=== PATIENT | female | born 2005 | race Caucasian/White ===

== ENCOUNTER 2023-02-18 10:02 | Outpatient (CLI) | payer BC, SELFPAY | END 2023-02-18 10:03 | disposition home or self-care (01) | PROVIDERS: Visit Provider Physician Assistant | DX: N92.0 Excessive and frequent menstruation with regular cycle (principal); N93.8 Other specified abnormal uterine and vaginal bleeding | CPT/HCPCS: 84443; 85240; 85245; 85246; 85384; 85610; 85730 ==

== ENCOUNTER 2023-02-23 13:41 | Outpatient (CLI) | payer BC, SELFPAY ==
--- NOTE | 2023-02-23 14:00 | CRLHL7_ITS ---
For Patients: As a result of the Century Cures Act, medical imaging exams and procedure reports are released immediately into your electronic medical record. You may view this report before your referring provider. If you have questions, please contact your health care provider. INDICATION: Dysfunctional uterine bleeding, frequent menses. TECHNIQUE: Transabdominal and transvaginal pelvic ultrasound. FINDINGS: Uterus is anteverted and measures 7.9 x 2.7 x 4.2 cm. Normal endometrial stripe thickness of 2 mm. Both ovaries appear normal and have normal color flow. No adnexal mass. Minimal physiologic free fluid. IMPRESSION: Normal pelvic ultrasound. Dictated by Riley Trimble MD @ 02/24/2023 8:07:08 AM (Electronically Signed)
== END 2023-02-23 13:42 | disposition home or self-care (01) ==
LOC: US 13:42
PROVIDERS: Visit Provider Physician Assistant
DX: N93.9 Abnormal uterine and vaginal bleeding, unspecified (principal)
CPT/HCPCS: 76830; 76856

== ENCOUNTER 2023-04-08 10:30 | Outpatient (RCR) | payer BC, SELFPAY ==
--- NOTE | 2023-03-26 12:24 | URNOTE ---
Request received for authorization for Iron Sucrose (Venofer) ([id number]). Prior authorization is not required per Receptor Drug Authorization list Rep. Randee Pereyra (Ref#Shirley. 03/26/23 0824).
[2023-03-29 09:13] VITALS: BP 116/74; PULSE 54; RESP 16; TEMP 36.4; O2SAT 99
[2023-03-29] MEDS: IRON SUCROSE COMPLEX 200 MG in 0.9 % SODIUM CHLORIDE 100 ml 440 MG IVPB (09:33)
[2023-03-31 10:05] VITALS: BP 119/73; PULSE 56; RESP 16; TEMP 36.7; O2SAT 100
[2023-03-31] MEDS: SODIUM CHLORIDE 0.9 % (FLUSH) 10 ML SYRINGE IVF (10:45)
[2023-03-31] MEDS: 0.9 % SODIUM CHLORIDE 250 ml IV (10:45)
[2023-03-31] MEDS: IRON SUCROSE COMPLEX 200 MG in 0.9 % SODIUM CHLORIDE 100 ml 440 MG IVPB (10:51)
[2023-03-31 11:12] VITALS: BP 104/67; PULSE 46; RESP 14; O2SAT 100
[2023-03-31 11:40] VITALS: BP 113/71; PULSE 52; RESP 16; TEMP 36.7; O2SAT 100
[2023-04-02 10:17] VITALS: BP 107/61; PULSE 56; RESP 16; TEMP 36.1; O2SAT 100
[2023-04-02] MEDS: SODIUM CHLORIDE 0.9 % (FLUSH) 10 ML SYRINGE IVF (10:27)
[2023-04-02] MEDS: 0.9 % SODIUM CHLORIDE 250 ml IV (10:27)
[2023-04-02] MEDS: IRON SUCROSE COMPLEX 200 MG in 0.9 % SODIUM CHLORIDE 100 ml 440 MG IVPB (10:30)
[2023-04-02 11:15] VITALS: BP 106/66; PULSE 55; RESP 16; TEMP 36.7; O2SAT 100
[2023-04-06 10:35] VITALS: BP 125/72; PULSE 72; RESP 16; TEMP 36.4; O2SAT 98
[2023-04-06] MEDS: IRON SUCROSE COMPLEX 200 MG in 0.9 % SODIUM CHLORIDE 100 ml 440 MG IVPB (10:54)
[2023-04-06] MEDS: SODIUM CHLORIDE 0.9 % (FLUSH) 10 ML SYRINGE IVF (10:55)
[2023-04-06] MEDS: 0.9 % SODIUM CHLORIDE 250 ml IV (10:55)
[2023-04-06 11:15] VITALS: BP 118/69; PULSE 55; TEMP 36.7; O2SAT 98
[2023-04-06 11:45] VITALS: BP 105/68; PULSE 55; RESP 16; TEMP 36.8; O2SAT 100
[2023-04-08 10:41] VITALS: BP 113/69; PULSE 64; RESP 16; TEMP 35.9; O2SAT 100
[2023-04-08] MEDS: 0.9 % SODIUM CHLORIDE 250 ml IV (11:19)
[2023-04-08] MEDS: IRON SUCROSE COMPLEX 200 MG in 0.9 % SODIUM CHLORIDE 100 ml 440 MG IVPB (11:20)
[2023-04-08 11:39] VITALS: BP 106/62; PULSE 60; RESP 16; TEMP 36.6; O2SAT 100
[2023-04-08] MEDS: SODIUM CHLORIDE 0.9 % (FLUSH) 10 ML SYRINGE IVF (11:45)
[2023-04-08 12:14] VITALS: BP 117/57; PULSE 62; RESP 16; TEMP 36.6; O2SAT 100
== END 2023-09-25 23:59 | disposition home or self-care (01) ==
LOC: CCIC 10:30
PROVIDERS: Visit Provider Clinical Nurse Specialist
DX: D50.9 Iron deficiency anemia, unspecified (principal)
CPT/HCPCS: 96365; 96374; J1756; J7050

== ENCOUNTER 2023-12-03 10:32 | Outpatient (CLI) | payer BC, SELFPAY ==
[2023-12-03 11:04] LABS: Hemoglobin* 14.1 gm/dL (12.0-16.0)
[2023-12-03 12:16] LABS: Ferritin* 14.3 ng/mL (6.24-137.0)
== END 2023-12-03 10:33 | disposition home or self-care (01) ==
LOC: LAB 10:34
PROVIDERS: Visit Provider Family Medicine
DX: R53.83 Other fatigue (principal)
CPT/HCPCS: 36415; 82728; 85018

== ENCOUNTER 2024-04-18 08:35 | Outpatient (CLI) | payer BC, SELFPAY ==
[2024-04-18 08:56] LABS: Hematocrit 36.8 % (33.0-51.0); Hemoglobin* 12.3 gm/dL (12.0-16.0); Mean Corpuscular HGB Conc 33 gm/dL (32-36); Mean Corpuscular Hemoglobin 29 pg (26-34); Mean Corpuscular Volume 86 fL (80-100); Platelet Count* 277 K/uL (140-440); Red Blood Count 4.27 m/uL (4.00-5.20); White Blood Count* 5.25 K/uL (4.50-11.00)
[2024-04-18 08:58] LABS: Slide Review Reflex No
[2024-04-18 09:14] LABS: Chloride* 102 mmol/L (96-114); Potassium* 3.7 mmol/L (3.6-5.1); Sodium* 136 mmol/L (135-149)
[2024-04-18 09:17] LABS: Anion Gap 8 mEq/L (7-15); Blood Urea Nitrogen* 15 mg/dL (5-24); Calcium* 9.4 mg/dL (8.4-10.6); Carbon Dioxide* 26 mmol/L (20-32); Creatinine* 0.7 mg/dL (0.5-1.5); Estimated Glomerular Filt Rate 127 ml/min; Glucose* 90 mg/dL (60-115)
[2024-04-18 09:32] LABS: Iron* 50 ug/dL (37-170)
[2024-04-18 09:43] LABS: Percent Iron Saturation 11 % (20-50); Total Iron Binding Capacity 472 ug/dL (265-497)
[2024-04-18 09:53] LABS: Ferritin* 6.7 ng/mL (6.24-137.0)
== END 2024-04-18 08:36 | disposition home or self-care (01) ==
LOC: LAB 08:35
PROVIDERS: Visit Provider Family Medicine
DX: D50.9 Iron deficiency anemia, unspecified (principal); R53.83 Other fatigue
CPT/HCPCS: 36415; 80048; 82728; 83540; 83550; 84443; 85027